=== PATIENT | female | born 1990 | race American Indian/Alaskan Native ===

== ENCOUNTER 2020-05-06 10:57 | Emergency (ER) | payer SELFPAY ==
--- NOTE | 2020-05-06 12:18 | XRay Report ---
CHEST 2 VIEWS INDICATION / CLINICAL INFORMATION: Chest pain. COMPARISON: None available. FINDINGS: SUPPORT DEVICES: None. HEART / MEDIASTINUM: No significant abnormality. LUNGS / PLEURA: No significant pulmonary or pleural abnormality. No pneumothorax. ADDITIONAL FINDINGS: No significant additional findings. IMPRESSION: 1. No acute findings. Signer Name: Mitchell Garcia MD Signed: 05/06/2020 12:14 PM Workstation Name: [id number]
[2020-05-06 12:29] VITALS: BP 126/76
[2020-05-06 17:51] LABS: Basophils % (Auto) 0.4 % (0.0-1.8); Eosinophils % (Auto) 0.5 % (0.0-4.3); Hematocrit 47.4 % (30.3-42.9); Hemoglobin 15.7 gm/dl (10.1-14.3); Lymphocytes % (Auto) 24.6 % (13.4-35.0); Mean Corpuscular HGB Conc 33 % (30-34); Mean Corpuscular Volume 92 fl (79-97); Monocytes # (Auto) 0.5 K/mm3 (0.0-0.8); Monocytes % (Auto) 5.7 % (0.0-7.3); Platelet Count 190 K/mm3 (140-440); Red Blood Count 5.16 M/mm3 (3.65-5.03); Red Cell Distribution Width 13.4 % (13.2-15.2)
--- NOTE | 2020-05-06 17:57 | Emergency Department Report ---
ED Palpitations HPI - General Chief Complaint: Chest Pain Stated Complaint: CHEST PAIN/ADALGISA/BODY TINGLING Time Seen by Provider: 05/06/20 11:41 Source: patient Mode of arrival: Ambulatory Limitations: No Limitations - History of Present Illness Initial Comments: 29-year-old female presents to ED with palpitations x3 days. Patient reports when these episodes occur they are associated with some shortness of breath. Patient denies chest pain. Patient states the durations usually occur at rest. She denies any past medical history. MD Complaint: irregular heart beat -: days(s) (3) Context: occured during rest Associated Symptoms: shortness of breath. denies: chest pain, syncope, near- syncope, nausea/vomiting, diaphoresis - Related Data Allergies Allergy/AdvReac Type Severity Reaction Status Date / Time No Known Allergies Allergy Verified 05/06/20 11:40 ED Review of Systems ROS: Stated complaint: CHEST PAIN/ADALGISA/BODY TINGLING Other details as noted in HPI Comment: All other systems reviewed and negative Constitutional: denies: chills, fever Respiratory: shortness of breath Cardiovascular: palpitations. denies: chest pain Musculoskeletal: other (Denies leg swelling) ED Physical Exam - General Limitations: No Limitations General appearance: alert, in no apparent distress, obese - Head Head exam: Present: atraumatic, normocephalic - Eye Eye exam: Present: normal appearance, EOMI - ENT ENT exam: Present: mucous membranes moist - Neck Neck exam: Present: normal inspection - Respiratory Respiratory exam: Present: normal lung sounds bilaterally. Absent: respiratory distress - Cardiovascular Cardiovascular Exam: Present: normal rhythm, bradycardia - GI/Abdominal GI/Abdominal exam: Present: soft. Absent: distended, tenderness - Extremities Exam Extremities exam: Present: normal inspection - Neurological Exam Neurological exam: Present: alert, oriented X3 - Psychiatric Psychiatric exam: Present: normal affect, normal mood - Skin Skin exam: Present: warm, dry, intact, normal color ED Course Vital Signs 05/06/20 12:27 Temperature 99 F Pulse Rate 56 L Respiratory 18 Rate Blood Pressure 126/76 [Right] O2 Sat by Pulse 100 Oximetry ED Medical Decision Making - Lab Data Result diagrams: 05/06/20 17:35 05/06/20 17:35 - EKG Data -: EKG Interpreted by Mo EKG shows normal: sinus rhythm, axis, intervals, QRS complexes, ST-T waves Rate: normal (rate 61) - Radiology Data Radiology results: report reviewed, image reviewed - Medical Decision Making 29-year-old female with palpitations. EKG unremarkable. Labs are normal, chest x-ray normal as well. Vital signs stable. Patient will be discharged home wit h cardiology follow-up information. Return precautions given. - Differential Diagnosis Arrhythmia, pneumonia, ACS, electrolyte abnormality Critical care attestation.: If time is entered above; I have spent that time in minutes in the direct care o f this critically ill patient, excluding procedure time. ED Disposition Clinical Impression: Palpitations Disposition: DC-01 TO HOME OR SELFCARE Is pt being admited?: No Condition: Stable Instructions: Palpitations (ED) Referrals: PRIMARY CAREMD [Primary Care Provider] - 3-5 Days USHA HARPER MD [Staff Physician] - 3-5 Days Time of Disposition: 18:15
[2020-05-06 18:12] LABS: BUN/Creatinine Ratio 10; Blood Urea Nitrogen 8 mg/dL (7-17); Calcium 9.2 mg/dL (8.4-10.2); Hemolysis Index 22
== END 2020-05-06 18:19 | disposition home or self-care (01) ==
LOC: ED 10:57
DX: R00.2 Palpitations (principal); R06.02 Shortness of breath
CPT/HCPCS: 36415; 71046; 80048; 84484; 85025; 93005